=== PATIENT | male | born 1960 | race Caucasian/White ===

== ENCOUNTER → 2019-12-14 09:06 | Outpatient (BNVA) | payer OTHER, SELFPAY | PROVIDERS: Family Provider Family Medicine; PCP Family Medicine; Visit Provider Internal Medicine Rheumatology | DX: M45.7 Ankylosing spondylitis of lumbosacral region (principal); L40.50 Arthropathic psoriasis, unspecified; Z79.899 Other long term (current) drug therapy; R76.8 Other specified abnormal immunological findings in serum; M12.80 Other specific arthropathies, not elsewhere classified, unspecified site; Z79.1 Long term (current) use of non-steroidal anti-inflammatories (NSAID) | CPT/HCPCS: 99214 ==

== ENCOUNTER 2019-12-21 12:45 | Outpatient (CLI) | payer OTHER, SELFPAY ==
--- NOTE | 2019-12-21 12:50 | XR_ITS ---
WS: [id number] XR pelvis 1-2V* [id number] REASON FOR EXAM: ankylosing spondylitis FINDINGS: One view pelvis again shows a spondylolysis L5-S1 on the left. The sacroiliac joints are normal. The ilium, ischium, and pubis bilaterally are normal. Both hip joints show no abnormalities. XR/XR pelvis 1-2V* [id number] IMPRESSION: Negative pelvic study. Spondylolysis on the left L5-S1
--- NOTE | 2019-12-21 12:50 | XR_ITS ---
WS: [id number] XR cervical spine 3V* [id number] REASON FOR EXAM: ankylosing spondylitis FINDINGS: Mild retrolisthesis C3 on C4 with spurring posteriorly. C6-C7 shows loss of the disc space with spurring posteriorly. The above findings have increased since previous exam of June 23, 2007 . The odontoid process is normal. There is hypertrophy of the joints of [place]. XR/XR cervical spine 3V* [id number] IMPRESSION: Cervical spondylosis. Mild retrolisthesis C3 on C4
--- NOTE | 2019-12-21 12:50 | XR_ITS ---
WS: [id number] XR chest 2V* [id number] REASON FOR EXAM: ankylosing spondylitis FINDINGS: The heart and mediastinal interfaces are normal. Mild hyper aerated lung suggesting mild emphysema. There is no pneumonia, pleural effusion, pulmonary edema, or mass effect. Slight irregularity of the apex bilaterally but no evidence of masses are seen and there is mild thic kening seen. XR/XR chest 2V* [id number] IMPRESSION: Thickened apex bilaterally Mild chronic obstructive pulmonary disease.
--- NOTE | 2019-12-21 12:50 | XR_ITS ---
WS: [id number] XR lumbar spine 2-3V* [id number] REASON FOR EXAM: ankylosing spondylitis FINDINGS: The disc spaces and vertebral bodies are normal. There was no evidence suspicious of ankylo sing spondylitis. There is facet arthropathy L4-5, L5-S1. On the left side there is evidence of spondylolysis. XR/XR lumbar spine 2-3V* [id number] IMPRESSION: Spondylolysis on the left L5-S1 Facet arthropathy L4-5, L5-S1.
== END 2019-12-21 12:46 | disposition home or self-care (01) ==
LOC: RADWPI 12:49
PROVIDERS: Family Provider Family Medicine; PCP Family Medicine; Visit Provider Internal Medicine Rheumatology
DX: M45.0 Ankylosing spondylitis of multiple sites in spine (principal); M47.817 Spondylosis without myelopathy or radiculopathy, lumbosacral region; M47.816 Spondylosis without myelopathy or radiculopathy, lumbar region; J44.9 Chronic obstructive pulmonary disease, unspecified; M47.812 Spondylosis without myelopathy or radiculopathy, cervical region
CPT/HCPCS: 71046; 72040; 72100; 72170

== ENCOUNTER → 2020-03-21 08:49 | Outpatient (BNVA) | payer OTHER, SELFPAY | PROVIDERS: Family Provider Family Medicine; PCP Family Medicine; Visit Provider Internal Medicine Rheumatology | DX: M45.9 Ankylosing spondylitis of unspecified sites in spine (principal); Z79.899 Other long term (current) drug therapy; Z79.1 Long term (current) use of non-steroidal anti-inflammatories (NSAID) | CPT/HCPCS: 99214 ==

== ENCOUNTER → 2020-07-11 13:14 | Outpatient (BNVA) | payer OTHER, SELFPAY | PROVIDERS: Family Provider Family Medicine; PCP Family Medicine; Visit Provider Internal Medicine Rheumatology | DX: M12.80 Other specific arthropathies, not elsewhere classified, unspecified site (principal); M45.7 Ankylosing spondylitis of lumbosacral region; Z79.899 Other long term (current) drug therapy; R76.8 Other specified abnormal immunological findings in serum | CPT/HCPCS: 99214 ==

== ENCOUNTER → 2020-11-28 08:57 | Outpatient (BNVA) | payer OTHER, SELFPAY | PROVIDERS: Family Provider Family Medicine; PCP Family Medicine; Visit Provider Internal Medicine Rheumatology | DX: M45.7 Ankylosing spondylitis of lumbosacral region (principal); L40.50 Arthropathic psoriasis, unspecified; M12.80 Other specific arthropathies, not elsewhere classified, unspecified site; Z79.899 Other long term (current) drug therapy | CPT/HCPCS: 99214 ==

== ENCOUNTER → 2021-04-10 15:13 | Outpatient (BNVA) | payer OTHER, SELFPAY | PROVIDERS: Family Provider Family Medicine; PCP Family Medicine; Visit Provider Internal Medicine Rheumatology | DX: L40.50 Arthropathic psoriasis, unspecified (principal); M12.80 Other specific arthropathies, not elsewhere classified, unspecified site; M45.7 Ankylosing spondylitis of lumbosacral region; Z79.899 Other long term (current) drug therapy; Z71.89 Other specified counseling | CPT/HCPCS: 99214 ==

== ENCOUNTER → 2021-10-23 08:06 | Outpatient (BNVA) | payer OTHER, SELFPAY | PROVIDERS: Family Provider Family Medicine; PCP Family Medicine; Referring Provider Family Medicine; Visit Provider Specialist | DX: G56.02 Carpal tunnel syndrome, left upper limb (principal) | CPT/HCPCS: 73110 ==

== ENCOUNTER 2021-12-05 05:46 | Day surgery (SDC) | payer OTHER, SELFPAY ==
[2021-12-04 08:20] VITALS: BMI 30.5
[2021-12-05 06:03] VITALS: BP 134/82; PULSE 74; RESP 18; TEMP 36.3; O2SAT 95
[2021-12-05] MEDS: sodium chloride 0.9% 1,000 ML 30 ML IV (06:15)
[2021-12-05] MEDS: acetaminophen 1,000 MG/100 ML PIGGYBACK 400 MG IV (06:16)
[2021-12-05] MEDS: CELEcoxib 200 mg Capsule 400 MG PO (06:16)
--- NOTE | 2021-12-05 06:43 | W.PM.OPSFHP ---
Same Day Surgery H&P Indication for Procedure/HPI DATE OF PROCEDURE: December 05, 2021 CHIEF COMPLAINT/INDICATIONFOR SURGICAL PROCEDURE: Left transfer text PREOP DIAGNOSIS: Left carpal tunnel syndrome PLANNED PROCEDURE: Operation Date: 12/05/21 07:00 Proposed Procedures p Carpal Tunnel Release /left 23589/ left carpel tunnel syndrome G56.00(Left) - Liset Hubbard MD Patient states that he has had pain to the hands for years. Patient states that he his left is worse than his right. Patient has numbness to the thumb, index, and middle fingers of both hands. Patient states the numbness and tingling is worse at night. Patient states that he has tried cortisone injections with slight improvement.? His injection was approximately 3 months ago.? Nerve conduction study performed by Dr. Watkins on November 13, 2021 demonstrated moderately severe entrapment of the right median nerve at the wrist as well as severe entrapment of the left median nerve at the wrist. Medications/Allergies* Home Medications Medication Instructions Recorded Confirmed Type levothyroxine 50 mcg capsule 50 mcg PO DAILY 12/13/19 12/05/21 History atorvastatin 20 mg tablet 20 mg PO DAILY 04/10/21 12/05/21 History sulfasalazine 500 mg tablet 1 g PO BID 12/05/21 12/05/21 History Allergies/Adverse Reactions Allergy/AdvReac Type Severity Reaction Status Date / Time No Known Allergies Allergy Verified 12/05/21 05:58 Current Medications: Generic Name Dose Route Start Last Admin Trade Name Freq PRN Reason Stop Dose Admin Sodium Chloride 1,000 mls @ 30 mls/hr 12/05/21 06:00 12/05/21 06:15 Sodium Chloride 0.9% IV 12/06/21 05:59 30 mls/hr .Q24H PHILIPP Administration Pertinent History/Comorbid Conditions* Medical History (Updated 10/23/21 @ 16:09 by Liset Hubbard MD) Ankylosing spondylitis High risk medication use HLA-B27 positive arthropathy Immunization counseling Psoriatic arthritis Unspecified 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, sequela Unspecified osteoarthritis, unspecified site Surgical History (Updated 12/14/19 @ 10:09 by Daljit Carpenter MD) History of appendectomy History of tonsillectomy Family History (Updated 12/14/19 @ 09:30 by Nuria Paulson LPN) Diabetes Hyperlipidemia Cancer Hypertension Denies family history of Rheumatoid arthritis Lupus Social History Smoking and tobacco status: never smoked Alcohol intake: current Alcohol intake frequency: holidays/special occasions only History of recent travel: No Pertinent Exam Findings alert, clear to auscultation bilaterally, regular rate & rhythm and operative site marked Lungs are clear to auscultation. Cardiac exam demonstrates regular rhythm and rate with no murmur. Positive Phalen's and Tinel's testing on the left. Excellent range of motion. Related Problem List Diagnoses (1) Carpal tunnel syndrome, left: Recommendations Surgery/Procedure today Other Plans: Outpatient carpal tunnel release left wrist Coding Level of Care Code Acute Orthotics Technician for [place] Pal Diagnoses Carpal tunnel syndrome, left G56.02
--- NOTE | 2021-12-05 06:52 | ANES.PREANE2 ---
Pre-Anesthetic Assessment Height/Weight: Height 1.8 m Weight 99.337 kg Temp Pulse Resp BP Pulse Ox 97.3 F L 74 18 134/82 95 12/05/21 06:03 12/05/21 06:03 12/05/21 06:03 12/05/21 06:03 12/05/21 06:03 Preop Diagnosis: Left carpal tunnel syndrome Operation Date: 12/05/21 07:00 Proposed Procedures p Carpal Tunnel Release /left 11560/ left carpel tunnel syndrome G56.00(Left) - Liset Hubbard MD Familial anesthetic complications: None Was Beta Daniel taken within 24 hours: N/A Was Clonidine taken within 24 hours: N/A Last intake: Intake Last Liquid Date 12/04/21 Last Liquid Time 22:00 Last Solid Date 12/04/21 Last Solid Time 18:30 Social No alcohol and No tobacco Exam alert, oriented x 3, clear to auscultation bilaterally and regular rate & rhythm Airway Submandibular: within normal limits Cervical ROM: within normal limits Mallampati: Class I Dentition: full History/ROS No significant complaints Pulmonary None reported CV/HEM None reported None reported Hepatic None reported GI Gastroesophageal Reflux Disease Metabolic Thyroid Disease Musc/skel Osteoarthritis/DJD Ankylosing spondylitis Psoriatic arthritis Neuropsych Neuropathy (b/l carpal tunnel ) Anesthetic Plan ASA status: 2 Anesthesia: Anesthesia Evaluation, General and Regional (specify below) ([place] block) Other: We discussed risk and benefits of general, MAC, and regional ([place] block) anesthesia including PONV, sore throat (sometimes severe), corneal abrasion, positioning and peripheral nerve injuries, life threatening allergic reaction, LAST, post operative ICU admission requiring prolonged intubation, stroke, heart attack, , failed block, tourniquet pain/discomfort, possibility of recall of intraoperative stimuli including discomfort/pain/pressure. Patient consents to proceed with MAC and [place] block anesthesia with conversion to general if needed. Risk of > 500 ml blood loss (7ml/kg in children): No Medications/Allergies Home Medications Medication Instructions Recorded Confirmed Last Taken Type levothyroxine 50 mcg capsule 50 mcg PO DAILY 12/13/19 12/05/21 12/04/21 06:00 History prednisone 10 mg tablet See Rx Instructions PO .COMPLEX 05/21/20 12/04/21 Unknown Rx PRN #30 tab atorvastatin 20 mg tablet 20 mg PO DAILY 10/07/21 06/03/22 06/02/22 21:00 History cyclosporine 0.05 % eye drops in a See Rx Instructions .ROUTE 08/14/21 12/05/21 12/04/21 05:00 Rx dropperette (Restasis) .COMPLEX #60 each ixekizumab 80 mg/mL subcutaneous 80 mg SUBCUT .C0dafqq #3 ml 08/14/21 12/05/21 11/21/21 Rx auto-injector (Taltz Autoinjector) leflunomide 20 mg tablet 20 mg PO DAILY #90 tab 08/14/21 12/05/21 12/04/21 08:00 Rx pantoprazole 40 mg tablet,delayed 40 mg PO BID #180 tab 08/14/21 12/05/21 12/04/21 21:00 Rx release (Protonix) sulfasalazine 500 mg tablet 1 g PO BID 12/05/21 12/05/21 12/04/21 21:00 History Allergies Allergy/AdvReac Type Severity Reaction Status Date / Time No Known Allergies Allergy Verified 12/05/21 05:58 Current Medications Generic Name Dose Route Start Last Admin Trade Name Freq PRN Reason Stop Dose Admin Sodium Chloride 1,000 mls @ 30 mls/hr 12/05/21 06:00 12/05/21 06:15 Sodium Chloride 0.9% IV 12/06/21 05:59 30 mls/hr .Q24H PHILIPP Administration PFSH Anesthesia Medical History Ankylosing spondylitis High risk medication use HLA-B27 positive arthropathy Immunization counseling Psoriatic arthritis Unspecified 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, sequela Unspecified osteoarthritis, unspecified site Surgical History History of appendectomy History of tonsillectomy Family History Other Cancer Diabetes Hyperlipidemia Hypertension Denies family history of Rheumatoid arthritis Lupus Social History Smoking and tobacco status: never smoked Alcohol intake: current Alcohol intake frequency: holidays/special occasions only History of recent travel: No Data Anesthesia Cardiac Studies: No Data to Display
[2021-12-05 07:55] VITALS: BP 140/89; PULSE 77; RESP 18; TEMP 36.3; O2SAT 93
[2021-12-05 08:01] VITALS: BP 147/93; PULSE 74; RESP 18; O2SAT 92
[2021-12-05 08:07] VITALS: BP 148/97; PULSE 71; RESP 18; TEMP 36.3; O2SAT 94
--- NOTE | 2021-12-05 08:11 | P.OP_ITS ---
Operative Report Date of procedure: December 05, 2021 Pre-op diagnosis: Left carpal tunnel syndrome Post-op diagnosis: Left carpal tunnel syndrome Post-op findings: Purpleish discoloration of the median nerve, fibrous tissue within the carpal canal. Procedure done: Left carpal tunnel release Specimens removed/disposition: None Surgeon: Liset Hubbard Commercial Carpenter: None Anesthesia: Other ([place] block, ASA 2) Estimated blood loss (mL): 2 Tourniquet time (min): 40 (At 275 mmHg) IV fluids (mL): 500 Urine output (mL): 0 (No Galvan) Complications: None Findings: Severe compression across the carpal canal with purplish discoloration of the median nerve and fibrous tissue within the canal Condition: stable Disposition: PACU (Then to same-day surgery for discharge home with family) Brief History: This is a 61 year old male patient who presented to my office with symptoms consistent with carpal tunnel syndrome bilaterally, left greater than right. Patient states that he has had pain to the hands for years. Patient has numbness to the thumb, index, and middle fingers of both hands. Patient states the numbness and tingling is worse at night. Patient states that he has tried cortisone injections with slight improvement.? His injection was approximately 3 months ago.? Patient denies any radiating symptoms to the upper arm and neck. After discussion in the office and subsequent nerve conduction study, the patient elected to proceed with surgical intervention in the form of carpal tunnel release. Procedure: The patient was brought to the operating theater. The patient had a [place] block, ASA 2. The tourniquet was elevated to 275 mmHg for a total tourniquet time of 40 minutes. The patient was also given Ancef 2 g preoperatively. The arm was then prepped and draped with DuraPrep in usual fashion with the arm draped free. A surgical pause was performed. At the time, the surgical pause, we confirmed the site and side of surgery. We also confirmed the patient's identity, appropriate and timely administration of preoperative antibiotics and preoperative surgical markings. An incision was then made along the thenar crease. The incision crossed the wrist joint in a curvilinear fashion. Dissection continued through skin and soft tissues using a scalpel. The palmaris longus was identified along with the transverse carpal ligament. Each of these was released carefully to avoid injury to the median nerve. We were able to dissect gently into the carpal canal which was noted to be quite tight with significant compression across the median nerve. The nerve was visualized and was an hourglass shape with purplish discoloration. The canal was subsequently palpated to assure there was no bony encroachment upon the canal. There was a quite thickened fibrous tissue within the canal, and this was opened longitudinally as well. The canal was then palpated distally and proximally to assure that my small finger was passed easily without impingement. Finding this to be so, attention was directed to ayla arango. The wound was irrigated with Marcaine plain. It was then closed with 3-0 nylon in an interrupted mattress fashion. Sterile dressing was then placed consisting of Xeroform gauze, fluffed fluffs, sterile soft roll, a volar splint, and an Nicholas wrap. The tourniquet was released after 40 minutes. There were no complications. There were no specimens. The procedure was well tolerated. Plan is the patient will be discharged home. Related Problem List Diagnoses (1) Carpal tunnel syndrome, left:
--- NOTE | 2021-12-05 10:30 | ANE.PACU2 ---
Inpatient post-anesthesia follow up: Airway intact: Yes Vital signs: Temperature 97.3 F Pulse Rate 71 Respiratory Rate 18 Blood Pressure 148/97 Pulse Oximetry 94 Oxygen Delivery Me thod Room Air Oxygen Flow Rate Fraction of Inspir ed Oxygen Hydration adequate: Yes Nausea and vomiting: No Pain level: 1 Mental status: Baseline
== END 2021-12-05 08:36 | disposition home or self-care (01) ==
PROVIDERS: PCP Family Medicine; Visit Provider Specialist
PROC: (CPT 64721; principal; 2021-12-05 07:00)
DX: G56.02 Carpal tunnel syndrome, left upper limb (principal)
CPT/HCPCS: 64721; J3010; J3490; J7030

== ENCOUNTER 2022-02-05 07:17 | Outpatient (CLI) | payer OTHER, SELFPAY ==
--- NOTE | 2022-02-05 07:27 | MR_ITS ---
WS: [id number] MRI RIGHT KNEE HISTORY: R KNEE PAIN COMPARISON: None available. Anterior cruciate ligament: Mild mucoid degeneration but no tear. Posterior cruciate ligament: Intact. Medial collateral ligament: Thickening and increased T2 signal in the proximal medial is a partial te ar of the proximal MCL. Posterior lateral corner structures: Intact. Medial menisci: Horizontal tear in the posterior horn does extend to the inferior articular surface. There is also some very mild blunting and fissuring towards the meniscal root involving the superior articular surface. Lateral meniscus: Intact. Normal signal, size and shape. Extensor mechanism: Distal quadriceps tendon and patellar tendons are intact. Fluid and soft tissue: Small suprapatellar joint effusion. No Payne's cyst. Osseous and articular structures: Patellofemoral compartment: Normal. Medial compartment: Mild loss of normal cartilage and very minimal joint space narrowing. No fracture or marrow edema. There is a very small amount of increased T2 signal in the medial tibial spine with adjacent cartilage and meniscal injury. Lateral compartment: Mild joint space narrowing with thinning of the cartilage. MR/MR knee RT wo con* [id number] IMPRESSION: 1. Mild MCL sprain. Partial tear proximal MCL. 2. Horizontal tear posterior horn medial meniscus with additional meniscal inj ury towards the meniscal root involving the superior articular surface. 3. Small amount of marrow edema in the medial tibial spine. This corresponds t o the injury involving the posterior medial meniscus towards the meniscal root.
== END 2022-02-05 07:18 | disposition home or self-care (01) ==
LOC: RAD 07:18
PROVIDERS: PCP Family Medicine; Visit Provider Family Medicine
DX: S83.411A Sprain of medial collateral ligament of right knee, initial encounter (principal); S83.241A Other tear of medial meniscus, current injury, right knee, initial encounter; X58.XXXA Exposure to other specified factors, initial encounter; R60.0 Localized edema
CPT/HCPCS: 73721

== ENCOUNTER 2022-03-13 05:53 | Day surgery (SDC) | payer OTHER, SELFPAY ==
[2022-03-12 12:48] VITALS: BMI 29.7
[2022-03-13 06:08] VITALS: BP 140/87; PULSE 74; RESP 18; TEMP 36.8; O2SAT 94
[2022-03-13] MEDS: acetaminophen 1,000 MG/100 ML PIGGYBACK 400 MG IV (06:30)
[2022-03-13] MEDS: sodium chloride 0.9% 1,000 ML 30 ML IV (06:30)
[2022-03-13] MEDS: CELEcoxib 200 mg Capsule 400 MG PO (06:32)
[2022-03-13] MEDS: ceFAZolin 2,000 MG in sodium chloride 0.9% (plus) 50 ML 100 MG IV (07:00)
--- NOTE | 2022-03-13 07:00 | ANES.PREANE2 ---
Pre-Anesthetic Assessment Height/Weight: Height 1.8 m Weight 96.615 kg Temp Pulse Resp BP Pulse Ox O2 Del Method 98.3 F 74 18 140/87 94 03/13/22 06:08 03/13/22 06:08 03/13/22 06:08 03/13/22 06:08 03/13/22 06:08 03/13/22 06:09 Preop Diagnosis: Right carpal tunnel syndrome Operation Date: 03/13/22 07:00 Proposed Procedures p Right Carpal Tunnel Release 12719,G56.00(Right) - Liset Hubbard MD Familial anesthetic complications: none Was Beta Daniel taken within 24 hours: N/A Was Clonidine taken within 24 hours: N/A Last intake: Intake Last Liquid Date 03/12/22 Last Liquid Time 21:00 Last Solid Date 03/12/22 Last Solid Time 18:00 Social No alcohol and No tobacco Exam alert, oriented x 3, clear to auscultation bilaterally and regular rate & rhythm Airway Submandibular: within normal limits Cervical ROM: within normal limits Mallampati: Class II Dentition: full GI Gastroesophageal Reflux Disease Metabolic Hyperlipidemia and Thyroid Disease chronic steroid Musc/skel Osteoarthritis/DJD psoriatic arthritis, ankylosing spondylitis Anesthetic Plan ASA status: 2 Anesthesia: MAC and Regional (specify below) ([place] schilling) Medications/Allergies Home Medications Medication Instructions Recorded Confirmed Last Taken Type levothyroxine 50 mcg capsule 50 mcg PO DAILY 12/13/19 03/13/22 03/12/22 History atorvastatin 20 mg tablet 20 mg PO DAILY 04/10/21 03/13/22 03/12/22 History cyclosporine 0.05 % eye drops in a See Rx Instructions .Route 02/11/22 03/12/22 Unknown Rx dropperette (Restasis) .COMPLEX #60 ea finasteride 5 mg tablet 5 mg PO DAILY 02/11/22 03/13/22 03/12/22 History ixekizumab 80 mg/mL subcutaneous See Rx Instructions .Route 02/11/22 03/13/22 02/17/22 Rx auto-injector (Taltz Autoinjector) .COMPLEX #1 mL leflunomide 20 mg tablet 20 mg PO DAILY arthritis pain #90 02/11/22 03/13/22 03/12/22 Rx tabs pantoprazole 40 mg tablet,delayed 40 mg PO BID #180 tabs 02/11/22 03/13/22 03/12/22 Rx release (Protonix) sulfasalazine 500 mg tablet 1 g PO BID #360 tabs 02/11/22 03/13/22 03/12/22 Rx tamsulosin 0.4 mg capsule 0.4 mg PO DAILY 02/11/22 03/13/22 03/12/22 History prednisone 10 mg tablet 10 mg PO DAILY PRN joint pain 03/13/22 03/13/22 Unknown History Allergies Allergy/AdvReac Type Severity Reaction Status Date / Time No Known Allergies Allergy Verified 02/11/22 10:02 Current Medications Generic Name Dose Route Start Last Admin Trade Name Freq PRN Reason Stop Dose Admin Sodium Chloride 1,000 mls @ 30 mls/hr 03/13/22 06:00 03/13/22 06:30 Sodium Chloride 0.9% IV 03/14/22 05:59 30 mls/hr .Q24H PHILIPP Administration PFSH Anesthesia Medical History (Updated 03/10/22 @ 07:04 by Liset Hubbard MD) Ankylosing spondylitis High risk medication use HLA-B27 positive arthropathy Immunization counseling Positive LAMAR (antinuclear antibody) Positive double stranded DNA antibody test Psoriatic arthritis Unspecified 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, sequela Unspecified osteoarthritis, unspecified site Surgical History History of appendectomy History of tonsillectomy Family History Other Cancer Diabetes Hyperlipidemia Hypertension Denies family history of Rheumatoid arthritis Lupus Social History Smoking and tobacco status: never smoked Alcohol intake: current Alcohol intake frequency: holidays/special occasions only History of recent travel: No Data Anesthesia Cardiac Studies: No Data to Display
--- NOTE | 2022-03-13 07:04 | W.PM.OPSFHP ---
Same Day Surgery H&P Indication for Procedure/HPI DATE OF PROCEDURE: March 13, 2022 CHIEF COMPLAINT/INDICATIONFOR SURGICAL PROCEDURE: Right carpal tunnel syndrome PREOP DIAGNOSIS: Right carpal tunnel syndrome PLANNED PROCEDURE: Operation Date: 03/13/22 07:00 Proposed Procedures p Right Carpal Tunnel Release 54229,G56.00(Right) - Liset Hubbard MD Medications/Allergies* Home Medications Medication Instructions Recorded Confirmed Type levothyroxine 50 mcg capsule 50 mcg PO DAILY 12/13/19 03/13/22 History atorvastatin 20 mg tablet 20 mg PO DAILY 04/10/21 03/13/22 History finasteride 5 mg tablet 5 mg PO DAILY 02/11/22 03/13/22 History tamsulosin 0.4 mg capsule 0.4 mg PO DAILY 02/11/22 03/13/22 History prednisone 10 mg tablet 10 mg PO DAILY PRN joint pain 03/13/22 03/13/22 History Allergies/Adverse Reactions Allergy/AdvReac Type Severity Reaction Status Date / Time No Known Allergies Allergy Verified 02/11/22 10:02 Current Medications: Generic Name Dose Route Start Last Admin Trade Name Freq PRN Reason Stop Dose Admin Sodium Chloride 1,000 mls @ 30 mls/hr 03/13/22 06:00 03/13/22 06:30 Sodium Chloride 0.9% IV 03/14/22 05:59 30 mls/hr .Q24H PHILIPP Administration Pertinent History/Comorbid Conditions* Medical History (Updated 03/10/22 @ 07:04 by Liset Hubbard MD) Ankylosing spondylitis High risk medication use HLA-B27 positive arthropathy Immunization counseling Positive LAMAR (antinuclear antibody) Positive double stranded DNA antibody test Psoriatic arthritis Unspecified 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, sequela Unspecified osteoarthritis, unspecified site Surgical History (Updated 12/14/19 @ 10:09 by Daljit Carpenter MD) History of appendectomy History of tonsillectomy Family History (Updated 12/14/19 @ 09:30 by Nuria Paulson LPN) Diabetes Hyperlipidemia Cancer Hypertension Denies family history of Rheumatoid arthritis Lupus Social History Smoking and tobacco status: never smoked Alcohol intake: current Alcohol intake frequency: holidays/special occasions only History of recent travel: No Pertinent Exam Findings alert, oriented x 3, clear to auscultation bilaterally, regular rate & rhythm, operative site marked and procedure specific exam findings (Symptoms consistent with carpal tunnel syndrome) Related Problem List Diagnoses (1) Carpal tunnel syndrome on right: Recommendations Surgery/Procedure today Coding Level of Care Code Acute Batch Roller Operator for [place] Pal Diagnoses Carpal tunnel syndrome on right G56.01
[2022-03-13 08:05] VITALS: BP 128/71; PULSE 68; RESP 12; TEMP 36.1; O2SAT 93
--- NOTE | 2022-03-13 08:09 | P.OP_ITS ---
Operative Report Date of procedure: March 13, 2022 Pre-op diagnosis: Right carpal tunnel syndrome Post-op diagnosis: Right carpal tunnel syndrome Post-op findings: Severe compression from the transverse carpal ligament Procedure done: Right carpal tunnel release Pathology: none sent Surgeon: Liset Hubbard Machine Rope Maker: None Anesthesia: MAC (With [place] block, ASA 2) Estimated blood loss (mL): 2 Tourniquet time (min): 44 (At 250 mmHg) IV fluids (mL): 400 Urine output (mL): 0 (No Galvan) Complications: None Findings: Severe compression across the carpal canal with hourglass shape to the median nerve Condition: stable Disposition: PACU (Then to preop area for discharge home) Brief History: This is a 61 year old male patient who presented to my office with symptoms consistent with carpal tunnel syndrome bilaterally, left greater than right.? Patient states that he has had pain to the hands for years. Patient had numbness to the thumb, index, and middle fingers of both hands. Patient states the numbness and tingling is worse at night. Patient states that he has tried cortisone injections with slight improvement.? The patient underwent left carpal tunnel release in December. He has recovered nicely from that and wishes to proceed with right carpal tunnel syndrome. Risks and complications are discussed with him. Consents are signed preoperatively and questions were answered. Procedure: The patient was brought to the operating theater. He had a [place] block, ASA 2. The tourniquet was elevated to 250 mmHg for a total tourniquet time of 44 minutes. The patient was also given Ancef 2 g preoperatively. The arm was then prepped and draped with DuraPrep in usual fashion with the arm draped free. A surgical pause was performed. At the time, the surgical pause, we confirmed the site and side of surgery. We also confirmed the patient's identity, appropriate and timely administration of preoperative antibiotics and preoperative surgical markings. An incision was then made along the thenar crease. The incision crossed the wrist joint in a curvilinear fashion. Dissection continued through skin and soft tissues using a scalpel. The palmaris longus was identified along with the transverse carpal ligament. Each of these was released carefully to avoid injury to the median nerve. We were able to dissect gently into the carpal canal which was noted to be quite tight with significant compression across the median nerve. The nerve was visualized and was an hourglass shape. Following release of the transverse carpal ligament, the canal was palpated to assure there was no bony encroachment upon the canal. There was a quite thickened fibrous tissue within the canal, and this was opened longitudinally as well. The canal was then palpated distally and proximally to assure that my small finger was passed easily without impingement. Finding this to be so, attention was directed to closure. The wound was irrigated with Marcaine plain, and this was also injected into the subcutaneous tissues. The incision was then closed with 3-0 nylon in an interrupted mattress fashion. Sterile dressing was then placed consisting of Dermabond, OpSite, fluffed fluffs, sterile soft roll, and an Nicholas wrap. The tourniquet was released after 44 minutes. There were no complications. There were no specimens. The procedure was well tolerated. Plan is the patient will be discharged home. Related Problem List Diagnoses (1) Carpal tunnel syndrome on right:
[2022-03-13 08:10] VITALS: BP 132/77; PULSE 64; RESP 14; O2SAT 92
[2022-03-13 08:15] VITALS: BP 144/82; PULSE 61; RESP 14; TEMP 36.2; O2SAT 93
[2022-03-13 08:20] VITALS: BP 120/69; PULSE 62; RESP 18; O2SAT 94
[2022-03-13 08:44] VITALS: BP 138/89; PULSE 58; RESP 18; O2SAT 94
--- NOTE | 2022-03-13 15:52 | ANE.PACU2 ---
Inpatient post-anesthesia follow up: Airway intact: Yes Vital signs: Temperature 97.1 F Pulse Rate 58 Respiratory Rate 18 Blood Pressure 138/89 Pulse Oximetry 94 Oxygen Delivery Me thod Room Air Oxygen Flow Rate Fraction of Inspir ed Oxygen Hydration adequate: Yes Nausea and vomiting: No Pain level: 2 Mental status: Baseline
== END 2022-03-13 08:47 | disposition home or self-care (01) ==
PROVIDERS: PCP Family Medicine; Visit Provider Specialist
PROC: (CPT 64721; principal; 2022-03-13 07:00)
DX: G56.01 Carpal tunnel syndrome, right upper limb (principal); K21.9 Gastro-esophageal reflux disease without esophagitis; E78.5 Hyperlipidemia, unspecified; M19.90 Unspecified osteoarthritis, unspecified site; Z79.52 Long term (current) use of systemic steroids
CPT/HCPCS: 64721; J2704; J3010; J3490; J7030

== ENCOUNTER → 2024-06-19 12:31 | Outpatient (BNVA) | payer MEDICARE, SELFPAY | PROVIDERS: PCP Family Medicine; Visit Provider Internal Medicine Rheumatology | DX: M45.7 Ankylosing spondylitis of lumbosacral region (principal); L40.50 Arthropathic psoriasis, unspecified; M12.80 Other specific arthropathies, not elsewhere classified, unspecified site; Z71.89 Other specified counseling; R76.8 Other specified abnormal immunological findings in serum; Z79.899 Other long term (current) drug therapy | CPT/HCPCS: 99214 ==

== ENCOUNTER 2024-09-21 08:00 | Oncology outpatient (recurring) (ONCR) | payer MEDICARE, SELFPAY ==
[2024-09-07 08:20] LABS: Basophils # 0.1 10^3/uL (0.0-0.1); Eosinophils # 0.2 10^3/uL (0.0-0.8); Eosinophils % 3.3 %; Lymphocytes # 1.5 10^3/uL (0.8-4.8); Lymphocytes % 22.2 %; Mean Corpuscular Hemoglobin 30.6 pg (27-33); Mean Corpuscular Volume 92.9 fl (82-101); Mean Platelet Volume 9.8 fL (7.4-10.4); Monocytes # 0.7 10^3/uL (0.2-0.9); Monocytes % 9.4 %; Neutrophils # 4.33 10^3/uL (1.8-7.7); Neutrophils % 63.1 %; Nucleated Red Blood Cells % 0 %; Platelet Count 180 10^3/cmm (157-399); Red Blood Count 5.06 10^6/uL (3.85-5.65); Red Cell Distribution Width 14.4 % (12.1-15.1); White Blood Count 6.88 10^3/uL (3.29-11.43)
[2024-09-07] MEDS: sodium chloride 0.9% 250 ML 75 ML IV (08:26)
[2024-09-07] MEDS: acetaminophen 325 mg Tablet 650 MG PO (08:26)
[2024-09-07] MEDS: methylPREDNISolone sod succ 40 mg/mL INJ IVP (08:27)
[2024-09-07] MEDS: diphenhydrAMINE 50 mg/mL SDV 1mL 25 MG IVP (08:32)
[2024-09-07 08:40] LABS: Alanine Aminotransferase 41 U/L (0-41); Albumin Level 4.2 g/dL (3.5-5.2); Alkaline Phosphatase 93 U/L (40-130); Aspartate Amino Transferase 26 U/L (0-40); Globulin 2.1 g/dL (1.3-4.6); Glomerular Filtration Rate 84.7 mL/min (90-130); Total Bilirubin 0.9 mg/dL (0.15-1.2); Total Protein 6.3 g/dL (6.6-8.7)
[2024-09-07 08:46] VITALS: BP 119/74; PULSE 71; TEMP 36.5; O2SAT 95
[2024-09-07] MEDS: infliximab-abda 500 MG in sodium chloride 0.9% 250 ML 10 MG IV (09:07)
[2024-09-07 09:42] LABS: Erythrocyte Sedimentation Rate 2 mm/hr (0-10)
[2024-09-07 11:40] VITALS: BP 124/81; PULSE 64; RESP 18; TEMP 36.6; O2SAT 93
[2024-09-21 08:13] VITALS: BP 116/74; PULSE 79; RESP 18; TEMP 36.6; O2SAT 92
[2024-09-21] MEDS: sodium chloride 0.9% 250 ML 75 ML IV (08:38)
[2024-09-21] MEDS: diphenhydrAMINE 50 mg/mL SDV 1mL 25 MG IVP (08:39)
[2024-09-21] MEDS: acetaminophen 325 mg Tablet 650 MG PO (08:39)
[2024-09-21] MEDS: methylPREDNISolone sod succ 40 mg/mL INJ IVP (08:39)
[2024-09-21] MEDS: infliximab-abda 500 MG in sodium chloride 0.9% 250 ML 10 MG IV (09:13)
[2024-09-21 09:50] VITALS: BP 118/75; PULSE 69; RESP 17; TEMP 36.2; O2SAT 92
[2024-09-21 10:45] VITALS: BP 115/72; PULSE 67; PULSE 70; RESP 18; TEMP 36.4; TEMP 36.6; O2SAT 90
[2024-09-21 11:49] VITALS: BP 123/73; PULSE 70; RESP 18; TEMP 36.6; O2SAT 90
== END 2024-10-02 23:59 | disposition home or self-care (01) ==
PROVIDERS: PCP Family Medicine; Visit Provider Internal Medicine Rheumatology
DX: Z53.9 Procedure and treatment not carried out, unspecified reason; M45.9 Ankylosing spondylitis of unspecified sites in spine; Z79.899 Other long term (current) drug therapy
CPT/HCPCS: 80076; 82565; 85025; 85651; 86140; 96360; 96375; 96413; 96415; A4222; J1200; J2919; J7050; J9999; Q5104

== ENCOUNTER 2024-10-19 07:57 | Oncology outpatient (recurring) (ONCR) | payer MEDICARE, SELFPAY ==
[2024-10-19] MEDS: sodium chloride 0.9% 250 ML 75 ML IV (08:30)
[2024-10-19] MEDS: acetaminophen 325 mg Tablet 650 MG PO (08:30)
[2024-10-19] MEDS: methylPREDNISolone sod succ 40 mg/mL INJ IVP (08:33)
[2024-10-19] MEDS: diphenhydrAMINE 50 mg/mL SDV 1mL 25 MG IVP (08:37)
[2024-10-19] MEDS: infliximab-abda 500 MG in sodium chloride 0.9% 250 ML 10 MG IV (09:08)
[2024-10-19 09:12] VITALS: BP 116/73; PULSE 65; RESP 16; TEMP 36.6; O2SAT 93
[2024-10-19 09:27] VITALS: BP 123/77; PULSE 68; RESP 16; TEMP 36.3; O2SAT 94
[2024-10-19 09:44] VITALS: BP 120/77; PULSE 64; RESP 16; TEMP 36.6; O2SAT 92
[2024-10-19 09:59] VITALS: BP 121/77; PULSE 81; RESP 16; TEMP 36.3; O2SAT 93
[2024-10-19 10:40] VITALS: BP 127/78; PULSE 68; RESP 16; TEMP 36.2; O2SAT 94
[2024-10-19 11:45] VITALS: BP 122/76; PULSE 84; RESP 16; TEMP 36.3; O2SAT 93
== END 2024-11-01 23:59 | disposition home or self-care (01) ==
LOC: ONCMED 07:57
PROVIDERS: PCP Family Medicine; Visit Provider Internal Medicine Rheumatology
DX: M45.9 Ankylosing spondylitis of unspecified sites in spine (principal); Z79.899 Other long term (current) drug therapy
CPT/HCPCS: 96375; 96413; 96415; A4222; J1200; J2919; J7050; J9999; Q5104

== ENCOUNTER → 2024-11-07 08:15 | Outpatient (BNVA) | payer MEDICARE, OTHER, SELFPAY | PROVIDERS: PCP Family Medicine; Visit Provider Specialist | DX: G62.9 Polyneuropathy, unspecified (principal); G62.89 Other specified polyneuropathies; M45.7 Ankylosing spondylitis of lumbosacral region; R76.8 Other specified abnormal immunological findings in serum | CPT/HCPCS: G0463 ==

== ENCOUNTER 2024-12-14 07:45 | Oncology outpatient (recurring) (ONCR) | payer MEDICARE, OTHER, SELFPAY ==
[2024-12-14 08:29] LABS: Basophils # 0.1 10^3/uL (0.0-0.1); Basophils % 1.1 %; Eosinophils # 0.3 10^3/uL (0.0-0.8); Eosinophils % 4.1 %; Hematocrit 47.8 % (37-53); Lymphocytes # 1.5 10^3/uL (0.8-4.8); Lymphocytes % 24.6 %; Mean Corpuscular HGB Conc 33.3 g/dL (30-55); Mean Corpuscular Hemoglobin 30.5 pg (27-33); Mean Corpuscular Volume 91.7 fl (82-101); Mean Platelet Volume 9.9 fL (7.4-10.4); Monocytes # 0.5 10^3/uL (0.2-0.9); Monocytes % 8.3 %; Neutrophils # 3.84 10^3/uL (1.8-7.7); Neutrophils % 61.3 %; Nucleated Red Blood Cells % 0 %; Platelet Count 212 10^3/cmm (157-399); Red Blood Count 5.21 10^6/uL (3.85-5.65); Red Cell Distribution Width 13.7 % (12.1-15.1); White Blood Count 6.27 10^3/uL (3.29-11.43)
[2024-12-14 08:39] LABS: Erythrocyte Sedimentation Rate 3 mm/hr (0-10)
[2024-12-14 08:49] LABS: Alanine Aminotransferase 40 U/L (0-41); Albumin Level 4.1 g/dL (3.5-5.2); Alkaline Phosphatase 93 U/L (40-130); Aspartate Amino Transferase 27 U/L (0-40); Bilirubin Direct 0.52 mg/dL (0.00-0.30); Globulin 2.4 g/dL (1.3-4.6); Total Bilirubin 1.2 mg/dL (0.15-1.2); Total Protein 6.5 g/dL (6.6-8.7)
[2024-12-14] MEDS: sodium chloride 0.9% 250 ML 75 ML IV (08:49)
[2024-12-14] MEDS: acetaminophen 325 mg Tablet 650 MG PO (08:50)
[2024-12-14] MEDS: diphenhydrAMINE 50 mg/mL SDV 1mL 25 MG IVP (08:50)
[2024-12-14] MEDS: methylPREDNISolone sod succ 40 mg/mL INJ IVP (08:56)
[2024-12-14] MEDS: infliximab-abda 500 MG in sodium chloride 0.9% 250 ML 300 MG IV (09:18)
[2024-12-14 17:28] VITALS: BP 127/77; PULSE 68; RESP 16; TEMP 36.8; O2SAT 94
== END 2025-01-01 23:59 | disposition home or self-care (01) ==
PROVIDERS: PCP Family Medicine; Visit Provider Internal Medicine Rheumatology
DX: M45.9 Ankylosing spondylitis of unspecified sites in spine (principal); Z79.899 Other long term (current) drug therapy; L40.50 Arthropathic psoriasis, unspecified; G56.03 Carpal tunnel syndrome, bilateral upper limbs
CPT/HCPCS: 80076; 82565; 85025; 85651; 86140; 96365; 96375; A4222; J1200; J2919; J7050; J9999; Q5104

== ENCOUNTER → 2025-01-04 12:54 | Outpatient (BNVA) | payer MEDICARE, OTHER, SELFPAY | PROVIDERS: PCP Family Medicine; Visit Provider Internal Medicine Rheumatology | DX: M45.7 Ankylosing spondylitis of lumbosacral region (principal); M12.80 Other specific arthropathies, not elsewhere classified, unspecified site; L40.50 Arthropathic psoriasis, unspecified; Z79.899 Other long term (current) drug therapy; Z71.89 Other specified counseling; R76.8 Other specified abnormal immunological findings in serum | CPT/HCPCS: 99214 ==

== ENCOUNTER 2025-01-25 07:52 | Oncology outpatient (recurring) (ONCR) | payer MEDICARE, OTHER, SELFPAY ==
[2025-01-25 08:13] VITALS: BP 112/73; PULSE 93; RESP 16; TEMP 36.6; O2SAT 96
[2025-01-25] MEDS: diphenhydrAMINE 50 mg/mL SDV 1mL 25 MG IVP (08:30)
[2025-01-25] MEDS: methylPREDNISolone sod succ 40 mg/mL INJ IVP (08:31)
[2025-01-25] MEDS: infliximab-abda 500 MG in sodium chloride 0.9% 250 ML 290 MG IV (09:11)
[2025-01-25 10:30] VITALS: BP 133/85; PULSE 78; RESP 18; TEMP 36.1; O2SAT 95
== END 2025-02-01 23:59 | disposition home or self-care (01) ==
PROVIDERS: PCP Family Medicine; Visit Provider Internal Medicine Rheumatology
DX: M45.9 Ankylosing spondylitis of unspecified sites in spine (principal); Z79.899 Other long term (current) drug therapy
CPT/HCPCS: 96375; 96413; A4222; J1200; J2919; J7050; J9999; Q5104

== ENCOUNTER → 2025-02-01 11:20 | Outpatient (BNVA) | payer MEDICARE, OTHER, SELFPAY | PROVIDERS: PCP Family Medicine; Visit Provider Dermatology | DX: L82.1 Other seborrheic keratosis (principal); S00.80XA Unspecified superficial injury of other part of head, initial encounter; X58.XXXA Exposure to other specified factors, initial encounter; L73.8 Other specified follicular disorders; S70.361A Insect bite (nonvenomous), right thigh, initial encounter; D22.5 Melanocytic nevi of trunk; L57.8 Other skin changes due to chronic exposure to nonionizing radiation; R82.0 Chyluria; R20.8 Other disturbances of skin sensation; L29.89 Other pruritus; L53.8 Other specified erythematous conditions; L57.0 Actinic keratosis | CPT/HCPCS: 17000; 17110; 99213 ==

== ENCOUNTER 2025-03-08 07:41 | Oncology outpatient (recurring) (ONCR) | payer MEDICARE, OTHER, SELFPAY ==
[2025-03-08 08:24] LABS: Hematocrit 47.7 % (37-53); Hemoglobin 15.90 g/dL (11.27-16.99); Mean Corpuscular HGB Conc 33.3 g/dL (30-55); Mean Corpuscular Hemoglobin 30.8 pg (27-33); Mean Corpuscular Volume 92.3 fl (82-101); Nucleated Red Blood Cells % 0 %; Platelet Count 201 10^3/cmm (157-399); Red Blood Count 5.17 10^6/uL (3.85-5.65); White Blood Count 6.42 10^3/uL (3.29-11.43)
[2025-03-08] MEDS: diphenhydrAMINE 50 mg/mL SDV 1mL 25 MG IVP (08:27)
[2025-03-08] MEDS: methylPREDNISolone sod succ 40 mg/mL INJ IVP (08:28)
[2025-03-08 08:41] LABS: Alanine Aminotransferase 42 U/L (0-41); Albumin Level 4.1 g/dL (3.5-5.2); Alkaline Phosphatase 89 U/L (40-130); Aspartate Amino Transferase 29 U/L (0-40); Creatinine Clr Calc Pharmacy 80.8231; Globulin 2.7 g/dL (1.3-4.6); Total Protein 6.8 g/dL (6.6-8.7)
[2025-03-08] MEDS: infliximab-abda 1,000 MG in sodium chloride 0.9% 150 ML 10 MG IV (09:01)
[2025-03-08 09:08] VITALS: BP 113/70; PULSE 75; RESP 17; TEMP 36.3; O2SAT 93
[2025-03-08 09:21] VITALS: BP 118/76; PULSE 73; RESP 16; TEMP 36.3; O2SAT 96
[2025-03-08 09:36] VITALS: BP 121/76; PULSE 74; RESP 16; TEMP 36.3; O2SAT 93
[2025-03-08 09:55] VITALS: BP 123/78; PULSE 72; RESP 16; TEMP 36.4; O2SAT 94
[2025-03-08 10:10] VITALS: BP 127/79; PULSE 69; RESP 16; TEMP 36.3; O2SAT 93
[2025-03-08 10:40] VITALS: BP 127/85; PULSE 70; RESP 16; TEMP 36.6; O2SAT 92
== END 2025-04-03 23:59 | disposition home or self-care (01) ==
PROVIDERS: PCP Family Medicine; Visit Provider Internal Medicine Rheumatology
DX: M45.9 Ankylosing spondylitis of unspecified sites in spine (principal); Z79.899 Other long term (current) drug therapy; L40.50 Arthropathic psoriasis, unspecified
CPT/HCPCS: 80076; 82565; 85025; 86140; 96375; 96413; 96415; A4222; J1200; J2919; J7050; J9999; Q5104

== ENCOUNTER 2025-04-19 07:22 | Oncology outpatient (recurring) (ONCR) | payer MEDICARE, OTHER, SELFPAY ==
[2025-04-19 07:54] VITALS: BP 113/70; PULSE 85; TEMP 36.5; O2SAT 94
[2025-04-19] MEDS: diphenhydrAMINE 50 mg/mL SDV 1mL 25 MG IVP (08:04)
[2025-04-19] MEDS: methylPREDNISolone sod succ 40 mg/mL INJ IVP (08:07)
[2025-04-19] MEDS: infliximab-abda 1,000 MG in sodium chloride 0.9% 150 ML 250 MG IV (08:39)
[2025-04-19 09:47] VITALS: BP 127/79; PULSE 66; RESP 16; TEMP 36.5; O2SAT 94
== END 2025-05-04 23:59 | disposition home or self-care (01) ==
PROVIDERS: PCP Family Medicine; Visit Provider Internal Medicine Rheumatology
DX: M45.9 Ankylosing spondylitis of unspecified sites in spine (principal); Z79.899 Other long term (current) drug therapy
CPT/HCPCS: 96375; 96413; A4222; J1200; J2919; J7050; J9999; Q5104

== ENCOUNTER 2025-06-07 09:45 | Oncology outpatient (recurring) (ONCR) | payer MEDICARE, OTHER, SELFPAY ==
[2025-06-07 10:48] LABS: Hematocrit 47.8 % (37-53); Hemoglobin 16.30 g/dL (11.27-16.99); Mean Corpuscular HGB Conc 34.1 g/dL (30-55); Mean Corpuscular Hemoglobin 31.0 pg (27-33); Mean Corpuscular Volume 90.9 fl (82-101); Nucleated Red Blood Cells % 0 %; Platelet Count 217 10^3/cmm (157-399); Red Blood Count 5.26 10^6/uL (3.85-5.65); White Blood Count 6.43 10^3/uL (3.29-11.43)
[2025-06-07] MEDS: diphenhydrAMINE 50 mg/mL SDV 1mL 25 MG IVP (10:50)
[2025-06-07] MEDS: methylPREDNISolone sod succ 40 mg/mL INJ IVP (10:57)
[2025-06-07 10:59] LABS: Alanine Aminotransferase 54 U/L (0-41); Albumin Level 4.3 g/dL (3.5-5.2); Alkaline Phosphatase 89 U/L (40-130); Aspartate Amino Transferase 33 U/L (0-40); Globulin 2.7 g/dL (1.3-4.6); Total Protein 7.0 g/dL (6.6-8.7)
[2025-06-07] MEDS: SODIUM CHLORIDE 0.9% IV (11:35)
[2025-06-07] MEDS: INFLIXIMAB ABDA IV (11:35)
[2025-06-07 11:40] VITALS: BP 117/75; PULSE 74; RESP 17; TEMP 36.3; O2SAT 94
[2025-06-07 12:51] VITALS: BP 127/76; PULSE 74; RESP 16; TEMP 36.2; O2SAT 96
== END 2025-07-04 23:59 | disposition home or self-care (01) ==
PROVIDERS: PCP Family Medicine; Visit Provider Internal Medicine Rheumatology
DX: M45.7 Ankylosing spondylitis of lumbosacral region; R76.89 Other specified abnormal immunological findings in serum; L40.50 Arthropathic psoriasis, unspecified; Z71.85 Encounter for immunization safety counseling; R76.81 Abnormal rheumatoid factor and anti-citrullinated protein antibody without rheumatoid arthritis; M12.80 Other specific arthropathies, not elsewhere classified, unspecified site; Z79.899 Other long term (current) drug therapy; Z53.9 Procedure and treatment not carried out, unspecified reason
CPT/HCPCS: 80076; 82306; 82565; 85025; 85651; 86140; 86480; 96375; 96413; 99214; A4222; J1200; J2919; J7050; J9999; Q5104